=== PATIENT | male | born 2000 | race Caucasian/White ===

== ENCOUNTER 2025-03-07 13:34 | Outpatient (CLI) | payer OTHER, SELFPAY ==
--- NOTE | ~2025-03-07 | XR_ITS ---
Right Hand Technique: PA, oblique, and lateral views were obtained. Clinical History: Injury Findings: There is transverse fracture the distal fifth metacarpal neck, with volar angulation. No ot her fracture or dislocation seen.. Joint spaces are preserved. Soft tissues are unremarkable. Impression: Volar angulated fracture of the distal fifth metacarpal neck. Reviewed, dictated and finalized at location . Impression: Volar angulated fracture of the distal fifth metacarpal neck.
== END 2025-03-07 13:35 | disposition home or self-care (01) ==
LOC: MICIMG 13:38
PROVIDERS: PCP Physician Assistant; Visit Provider Physician Assistant
DX: S62.396A Other fracture of fifth metacarpal bone, right hand, initial encounter for closed fracture (principal); X58.XXXA Exposure to other specified factors, initial encounter
CPT/HCPCS: 73130